=== PATIENT | female | born 1985 | race Caucasian/White ===

== ENCOUNTER 2016-10-30 16:16 | Emergency (ER) | payer OTHER ==
--- NOTE | ~2016-10-30 | CR63 ---
[facility] A Service [facility] RADIOLOGY TEXT RESULTS PATIENT: LYNDA PACHECO LOCATION: CFTX : 87 UNIT #: [id number] AGE: [address]: Shari Gonzalez SEX: F ORDER DR: [id number] [facility] [address] [place], [place] [address] [id number] MR#: [id number] Acc #: [id number] NAME: LYNDA PACHECO : 1985 SEX: F STUDY DATE/TIME: 10/30/2016 16:00 UNIT: CFUT ROOM: STUDY DESCRIPTION: CR Chest 2 View Attending Physician: Shari Gonzalez P.A.-C. Referring Physician: Primary Care Physician No Ordering Physician: Shari Gonzalez P.A.-C. Primary Care Physician: Primary Care Physician No MEDICAL IMAGING REPORT This report is preliminary unless electronic signature is present EXAM PA and lateral chest DATE 10/30/2016 HISTORY 30-year-old female with cough, shortness breath, fever and body aches for 2 days. COMPARISON Acute abdominal series 10/05/2014 FINDINGS PA and lateral examination of the chest upright shows a good expansion of the parenchyma with a normal distribution of the pulmonary vascularity. There is no indication of congestion, effusion, infiltrate, tumor, or nodular density. The pleural reflections and diaphragmatic contours are normal. The cardiac silhouette and mediastinal anatomy is within normal limits. IMPRESSION Normal chest. Dictated by... Ana Pacheco M.D. THIS IS AN ELECTRONICALLY VERIFIED REPORT Ana Pacheco M.D. at 10/31/2016 8:35 AM H/to TD: 10/30/2016 23:00 [facility] A [facility] RADIOLOGY TEXT RESULTS PATIENT: LYNDA PACHECO LOCATION: [place] : 87 UNIT #: [id number] AGE: [address]: Shari Gonzalez SEX: F ORDER DR: URBAN #: [id number] MEDICAL IMAGING REPORT Page 1 of 1 COPY
[~2016-10-30 16:16] MED LIST: EC-NAPROSYN500 MG PO; LORCET PO; MULTI-VITAMIN1 EAC1 PO; TYLENOL #3 PO; YASMIN 28 TABLE1 TAB; YASMIN 28 TABLE1 TAB PO
[2016-10-30 16:48] LABS: INFLUENZA A NEG (NEG); INFLUENZA B POS (NEG)
== END 2016-10-30 16:55 | disposition home or self-care (01) ==
LOC: CFTX 16:16
PROVIDERS: Physician Assistant
DX: J10.1 Influenza due to other identified influenza virus with other respiratory manifestations (principal); J45.909 Unspecified asthma, uncomplicated; F17.210 Nicotine dependence, cigarettes, uncomplicated
CPT/HCPCS: 71020; 87651; 87804; 99283

== ENCOUNTER 2017-02-11 21:59 | Emergency (ER) | payer OTHER ==
[2017-02-12 00:29] LABS: URINE SOURCE CLEAN CATCH
[2017-02-12 00:36] LABS: BASOPHIL# 0.1 X10e3 (0-0.3); BASOPHIL% 0.6 % (0-2.5); EOSINOPHIL# 0.3 X10e3 (0-0.7); EOSINOPHIL% 2.8 % (0.0-7.0); HEMATOCRIT 39.2 % (35.0-45.0); HEMOGLOBIN 13.2 gm/dL (12.0-16.0); LYMPHOCYTE# 2.1 X10e3 (1.0-3.5); LYMPHOCYTE% 18.3 % (17.0-45.0); MEAN CELL VOLUME 89.2 FL (83-96); MEAN CORPUSCULAR HGB CONC 33.7 g/dL (30-36); MEAN PLATELET VOLUME 8.6 FL (6.5-11.5); MONOCYTE# 0.9 X10e3 (0-1.0); NEUTROPHIL# 8.1 X10e3 (1.5-7.1); NEUTROPHIL% 70.3 % (40-75); PLATELET COUNT 232 X10e3 (140-420); RED BLOOD COUNT 4.39 X10e (3.90-5.30); RED CELL DISTRIBUTION WIDTH 12.9 % (11.0-15.5); WHITE BLOOD COUNT 11.5 X10e3 (4.0-10.5)
[2017-02-12 00:39] LABS: DIFF IND NO
[2017-02-12 00:47] LABS: CULTURE INDICATED? YES; URBCS1 AUWI 0-2 /[HPF] (0-2); URINE APPEARANCE TURBID; URINE BACTERIA AUWI 3+ (NEGATIVE); URINE BILIRUBIN NEG (NEG); URINE BLOOD NEG (NEG); URINE COLOR YELLOW; URINE GLUCOSE NEG (NEG); URINE KETONE TRACE (NEG); URINE LEUKOCYTE ESTERASE 1+ (NEG); URINE NITRATE NEG (NEG); URINE PH 6.5 (5-8); URINE PROTEIN 1+ (NEG); URINE SPECIFIC GRAVITY 1.035 (1.003-1.035); URINE SQUAMOUS EPITHELIAL CELL MANY /[HPF]
[2017-02-12 00:55] LABS: ALBUMIN SERUM 4.1 g/dL (3.5-5.0); ALKALINE PHOSPHATASE 57 U/L (32-92); ALT (SGPT) 10 U/L (10-40); AST (SGOT) 14 U/L (10-42); BILIRUBIN,TOTAL 0.2 mg/dL (0.2-2.0); BLOOD UREA NITROGEN 18 mg/dL (9-23); CALCIUM SERUM 8.3 mg/dL (8.4-10.2); CARBON DIOXIDE 23 mmol/L (22-31); CHLORIDE 103 mmol/L (100-111); CREATININE SERUM 0.6 mg/dL (0.6-1.4); GLOM FILT RATE Estimated 123.2 mL/min (>60); GLUCOSE FASTING 96 mg/dL (70-110); POTASSIUM 3.8 mmol/L (3.5-5.1); PROTEIN TOTAL SERUM 6.8 g/dL (6.0-8.3); SODIUM 132 mmol/L (135-145)
[2017-02-12 00:59] LABS: BILIRUBIN, DIRECT <0.1 mg/dL (0.0-0.2); BILIRUBIN,INDIRECT 0.1 mg/dL (0.0-0.9)
== END 2017-02-12 03:12 | disposition home or self-care (01) ==
LOC: CED 21:59
PROVIDERS: Emergency Medicine
DX: N61.1 Abscess of the breast and nipple (principal); J45.909 Unspecified asthma, uncomplicated; F17.210 Nicotine dependence, cigarettes, uncomplicated
CPT/HCPCS: 36415; 80048; 80076; 81003; 84703; 85025; 87086; 96365; 96367; 96375; 99283; J1170; J1200; J3370